=== PATIENT | male | born 1965 | race Caucasian/White ===

== ENCOUNTER 2017-03-23 20:39 | Inpatient (IN) | payer MEDICAID ==
[~2017-03-23] VITALS: Ht 175.3 cm; Wt 88.5 kg
[2017-03-23 21:09] VITALS: Ht 175.3 cm; Wt 88.5 kg
[2017-03-24 01:01] VITALS: BP 151/87
[2017-03-24 03:24] LABS: ALBUMIN 3.8 g/dL (3.4-5.0); ALKALINE PHOSPHATASE 71 U/L (46-116); ALT/SGPT 34 U/L (16-63); AST/SGOT 25 U/L (15-37); BILIRUBIN TOTAL 0.64 mg/dL (0.20-1.00); CALCIUM 8.4 mg/dL (8.5-10.1); CARBON DIOXIDE 27.8 mmol/L (21-32); CHLORIDE SERUM 107 mmol/L (98-107); CREATININE SERUM 0.9 mg/dL (0.7-1.3); GFR1 > 60 mL/min; GLUCOSE SERUM 105 mg/dL (74-106); PHOSPHOROUS 3.4 mg/dL (2.5-4.9); POTASSIUM SERUM 3.3 mmol/L (3.5-5.1); SODIUM SERUM 141 mmol/L (136-145); TOTAL PROTEIN, SERUM 6.7 g/dL (6.4-8.2)
[2017-03-24 03:26] LABS: T3 TOTAL 1.07 ng/mL
[2017-03-24 03:30] LABS: BASOPHIL % 0.6 % (0-2); PLATELET COUNT 163 x10^3mcL (130-400); RED CELL DISTRIBUTION WIDTH 13.7 % (11.5-14.5)
[2017-03-24 03:32] LABS: FREE T4 0.99 ng/dL (0.76-1.46); FREE THYROXINE INDEX 2.6 ug/dL (1.4-4.5); T4(THYROXINE) 6.9 ug/dL (4.7-13.3)
[2017-03-24 06:02] VITALS: BP 100/52
[2017-03-24 09:21] VITALS: BP 139/93
[2017-03-24 13:20] VITALS: BP 106/63
[2017-03-24 16:40] VITALS: BP 125/77
[2017-03-24 17:36] LABS: microscopic required? NO
[2017-03-24 18:46] LABS: AMPHETAMINE QUAL UR NONE DETECTED (NEG <=1000)
[2017-03-24 18:57] LABS: UA SPECIFIC GRAVITY >=1.030 (1.005-1.035); urine erythrocyte NEGATIVE (NEGATIVE)
[2017-03-24 22:08] VITALS: BP 110/68
[2017-03-25 05:25] VITALS: BP 109/61
[2017-03-25 07:30] LABS: CARBON DIOXIDE 26.9 mmol/L (21-32); CHLORIDE SERUM 106 mmol/L (98-107); CREATININE SERUM 0.9 mg/dL (0.7-1.3); GFR1 > 60 mL/min; GLUCOSE SERUM 95 mg/dL (74-106); POTASSIUM SERUM 3.9 mmol/L (3.5-5.1); SODIUM SERUM 142 mmol/L (136-145)
[2017-03-25 08:10] LABS: CHOLESTEROL/HDL RATIO 2.8
[2017-03-25 09:40] VITALS: BP 107/63
[2017-03-25] MEDS ORDERED: BACTRIM DS1 TAB PO (11:22)
[2017-03-25] MEDS ORDERED: LAC PO (11:23)
[2017-03-25] MEDS ORDERED: NORCO1 TA2 PO (12:17)
[2017-03-25 12:21] VITALS: BP 121/78
[2017-03-25 13:07] VITALS: BP 121/78
== END 2017-03-25 13:55 | disposition home or self-care (01) | DRG 342 ==
LOC: ED 20:39 → DU 23:32 → MU 03-24 08:33
PROVIDERS: Family Medicine; Student in an Organized Health Care Education/Training Program
PROC: 0HQEXZZ Repair Left Lower Arm Skin, External Approach (ICD-10-PCS; principal; 2017-03-23)
DX: S52.502B Unspecified fracture of the lower end of left radius, initial encounter for open fracture type I or II (principal); E83.51 Hypocalcemia; I10 Essential (primary) hypertension; E87.6 Hypokalemia; V86.93XA Unspecified occupant of dune buggy injured in nontraffic accident, initial encounter; Y92.820 Desert as the place of occurrence of the external cause
CPT/HCPCS: 83880; 84439; 90715; A4570; J0690; J2001; J3490; J7030; Q0162